=== PATIENT | female | born 1990 | race Caucasian/White ===

== ENCOUNTER → 2018-09-27 | Outpatient (CLI) | payer MEDICAID | LOC: SUN.DIA 13:30 | DX: O24.419 Gestational diabetes mellitus in pregnancy, unspecified control (principal); Z3A.31 31 weeks gestation of pregnancy | CPT/HCPCS: G0108 ==

== ENCOUNTER → 2018-10-03 | Outpatient (CLI) | payer MEDICAID | LOC: SUN.DIA 13:55 | DX: O24.419 Gestational diabetes mellitus in pregnancy, unspecified control (principal); Z3A.33 33 weeks gestation of pregnancy | CPT/HCPCS: G0108 ==

== ENCOUNTER → 2018-10-23 | Outpatient (CLI) | payer MEDICAID | LOC: SUN.DIA 10:04 | DX: O24.419 Gestational diabetes mellitus in pregnancy, unspecified control (principal); Z3A.33 33 weeks gestation of pregnancy | CPT/HCPCS: G0108 ==

== ENCOUNTER → 2018-11-07 | Outpatient (CLI) | payer MEDICAID | LOC: SUN.DIA 09:49 | DX: O24.419 Gestational diabetes mellitus in pregnancy, unspecified control (principal); Z3A.38 38 weeks gestation of pregnancy | CPT/HCPCS: G0108 ==

== ENCOUNTER 2018-11-14 13:21 | Inpatient (IN) | payer MEDICAID ==
[2018-11-14] VITALS (24 sets, daily range): BP systolic 94–142; BP diastolic 57–94; PULSE 16–106; TEMP 98.3
[~2018-11-14] VITALS: Ht 154.9 cm; Wt 95.5 kg
--- NOTE | 2018-11-14 13:25 | NUR ---
Patient ambulatory to LR3, changed into gown, FHR/TOCO monitors placed and explained. Patient states "having some bloody discharge and random pain, nothing that I can time" Denies leaking of fluid/regular contractions. 1330: SVE-1-2/75/-3 and small amount of bloody show. Plan of care discussed and patient understands. Will continue to monitor.
[2018-11-14] MEDS ORDERED: LEVOXYL0.05 MG PO (13:37)
[2018-11-14] MEDS ORDERED: CONCEPT DHA1 CAP PO (13:38)
--- NOTE | 2018-11-14 13:40 | NUR ---
Tara RESTREPO notifies Dr See of patient and that SVE-1-2/75/-3 with small amount of bloody show and that patient is here with the complaints of bloody show. Dr. See orders to recheck SVE in one hour.
--- NOTE | 2018-11-14 14:40 | NUR ---
Jose RN calls and updated Dr. See that patient is ellie every 4-6 minutes and SVE recheck was . Dr. See orders to watch for another hour and recheck SVE.
--- NOTE | 2018-11-14 16:00 | NUR ---
1600-Recieved report from LAURO Clark on patient. Dr. See calls unit for update on patient and to report c/s pushed to 1645, see physician notification. 1620-SROM reported by patient, clear fluid noted. SVE by this RN . Patient getting to an uncontrollable comfort level. 1623-Dr. See updated on patient, see physician notification. 1627-Patient sitting up on bedside, ZOHRA Elliott to room. 1632-Single shot admininstered by YAMILKA Elliott patient denies symptoms of reaction or side effects. 1632-BG 79 at this time. 1640-Repositioned LL, updated on plan of care and safety. [id number] difficulty tracing EFM due to positioning for epidural placment. 1641-RN continues to readjust EFM after repositioning. 1656-patient off EFM, Dr. See to patient room reviews plan of care. 1700-Patient to OR via bed.
[2018-11-14 16:18] LABS: BASO % 0.2 % (0.0-2.0); EOS % 0.2 % (0-4.0); GRAN % 66.9 % (42.2-75.2); HEMATOCRIT 39.1 % (37.0-47.0); HEMOGLOBIN 12.2 g/dl (12.5-16.0); LYMPH # 2.1 (1.2-3.4); LYMPH % 23.9 % (20.0-51.0); MEAN CELL VOLUME 85 fl (80.0-100.0); MEAN CORPUSCULAR HEMOGLOBIN 27 pg (27.0-31.0); MEAN CORPUSCULAR HGB CONC 31 g/dl (33.0-37.0); MEAN PLATELET VOLUME 10.6 fl (7.4-10.4); MONO # 0.7 (0.1-0.6); PLATELET COUNT 239 K/mm3 (130-400); REDCELL DISTRIBUTION WIDTH-CV 14.9 % (11.5-14.5)
--- NOTE | 2018-11-14 18:00 | NUR ---
1800-Patient A&O x4 to PACU via bed. LR infusing to L wrist IV, Abdomen soft and flat, dressing to abdomen C/D/I. [employer] massage firm, Lochia WNL. Abdominal binder in place. Pierre to DD,clear yellow urine return. Updated on plan of care. Recieved report from ZOHRA Elliott
--- NOTE | 2018-11-14 19:30 | NUR ---
UNABLE TO MOVE LEGS. ROLLED FROM SIDE TO SIDE FOR PERICARE AND EPID CATH DCD. IV TO INT. REGULAR DIET TAKEN.
[2018-11-15 01:15] VITALS: BP 116/73; PULSE 86; TEMP 98.8
== END 2018-11-16 17:55 | disposition home or self-care (01) | DRG 788 ==
LOC: LDRO 13:21 → OB 15:30 → LDR 15:30 → OB 19:24
PROVIDERS: ADMIT Obstetrics & Gynecology
PROC: 10D00Z1 Extraction of Products of Conception, Low, Open Approach (ICD-10-PCS; principal; 2018-11-14)
DX: O34.211 Maternal care for low transverse scar from previous cesarean delivery (principal); Z3A.37 37 weeks gestation of pregnancy; Z37.0 Single live birth; O24.420 Gestational diabetes mellitus in childbirth, diet controlled; O99.284 Endocrine, nutritional and metabolic diseases complicating childbirth; E03.9 Hypothyroidism, unspecified; O99.214 Obesity complicating childbirth; O99.824 Streptococcus B carrier state complicating childbirth
CPT/HCPCS: J0690; J1885; J2175; J2370; J2405; J3010; J7120